=== PATIENT | female | born 1960 | race Caucasian/White ===

== ENCOUNTER → 2019-12-11 15:14 | Outpatient (CLI) | payer OTHER, SELFPAY ==
--- NOTE | ~2019-12-11 | MM_ITS ---
EXAMINATION: MM screening [facility] BI w opal HISTORY: Screening mammogram TECHNIQUE: Craniocaudal and mediolateral oblique 3-D tomosynthesis images were obtained and synthetic 2-D images were generated. CAD analysis was submitted and interpreted. COMPARISON: 12/06/2018, 11/17/2017, 11/08/2016 BREAST PARENCHYMAL COMPOSITION: There are scattered areas of fibroglandular density. FINDINGS: RIGHT BREAST: There is no evidence of suspicious mass, calcification, or architectural distortion to suggest malignancy. There has been no significant interval change. LEFT BREAST: A mass is present in the middle third of the lower-outer breast best appreciated 8 cm fr om the nipple on craniocaudal tomosynthesis image /. IMPRESSION: 1. Left breast mass. 2. Additional mammographic views and possible breast ultrasound are recommended. BI-RADS Category 0: Incomplete: Needs additional imaging evaluation. Reviewed, dictated and finalized at location A. IMPRESSION: 1. Left breast mass. 2. Additional mammographic views and possible breast ultrasound are recommended . BI-RADS Category 0: Incomplete: Needs additional imaging evaluation.
== END ==
PROVIDERS: Visit Provider Nurse Practitioner Obstetrics & Gynecology
DX: Z12.31 Encounter for screening mammogram for malignant neoplasm of breast (principal); R92.8 Other abnormal and inconclusive findings on diagnostic imaging of breast
CPT/HCPCS: 77063; 77067

== ENCOUNTER → 2019-12-26 08:22 | Outpatient (CLI) | payer OTHER, SELFPAY ==
--- NOTE | ~2019-12-26 | MMUS_ITS ---
EXAMINATION: MM diagnostic mammo unilat LT, US breast LT limited HISTORY: Follow-up left breast mass TECHNIQUE: Additional 3-D tomosynthesis images of the left breast were performed and synthetic 2-D im ages were generated. CAD analysis was submitted and interpreted. High resolution left breast ultrasou nd was performed. COMPARISON: 12/11/2019 BREAST PARENCHYMAL COMPOSITION: Breast composed of scattered areas of fibroglandular density FINDINGS: MAMMOGRAPHIC FINDINGS: There is a small 5 mm mass in the mid outer aspect of the left breast. There are no suspicious calcif ications or architectural distortion. ULTRASOUND: Left breast ultrasound: At 3:00, 4 cm from the nipple, there is a 5 mm cyst corresponding to the mass seen on mammogram. No s uspicious masses to suggest malignancy. IMPRESSION: 1. No mammographic or sonographic evidence for malignancy in the left breast. 2. Routine yearly screening mammogram and regular clinical breast examination are recommended. BI-RADS Category 2: Benign finding(s). Reviewed, dictated and finalized at location A. IMPRESSION: 1. No mammographic or sonographic evidence for malignancy in the left breast. 2. Routine yearly screening mammogram and regular clinical breast examination a re recommended. BI-RADS Category 2: Benign finding(s).
== END ==
PROVIDERS: PCP Family Medicine; Visit Provider Nurse Practitioner Obstetrics & Gynecology
DX: R92.8 Other abnormal and inconclusive findings on diagnostic imaging of breast (principal)
CPT/HCPCS: 76642; 77065

== ENCOUNTER → 2021-01-13 13:13 | Outpatient (CLI) | payer OTHER, SELFPAY ==
--- NOTE | ~2021-01-13 | MM_ITS ---
EXAMINATION: MM screening [facility] BI w opal HISTORY: Screening TECHNIQUE: Craniocaudal and mediolateral oblique 3-D tomosynthesis images were obtained and synthetic 2-D images were generated. CAD analysis was submitted and interpreted. COMPARISON: Comparison to multiple prior studies sequentially, with oldest reviewed study dated 10/15. BREAST PARENCHYMAL COMPOSITION: There are scattered areas of fibroglandular density. FINDINGS: There is no evidence of suspicious mass, calcification, or architectural distortion to sugg est malignancy in either breast. There has been no suspicious interval change. IMPRESSION: 1. No mammographic evidence of malignancy. 2. Recommend routine screening mammography in one year. BI-RADS Category 1: Negative Reviewed, dictated and finalized at location A.
--- NOTE | ~2021-01-13 | DEXA_ITS ---
Bone Density Report Name: Tracy Mckeon Age: 60 Sex: Female Ethnicity: White Date of : 1960 Indication: osteopenia;postmenopausal Referring Provider: Marie, Maria De Jesus Jalloh Study: Bone densitometry was performed. Exam Date: January 13, 2021 Accession number: [id number] Bone Density: Region BMD T-score Z-score Classification AP Spine (L1-L4) 0.825 -2.0 -0.6 Osteopenia Femoral Neck (Left) 0.710 -1.3 0.0 Osteopenia Total Hip (Left) 0.779 -1.3 -0.4 Osteopenia Femoral Neck (Right) 0.690 -1.4 -0.1 Osteopenia Total Hip (Right) 0.730 -1.7 -0.8 Osteopenia Total Hip Mean 0.755 -1.5 -0.6 Osteopenia World Health Organization criteria for BMD impression classify patients as: Normal (T-score at or above -1.0), Osteopenia (T-score between -1.0 and -2.5), or Osteoporosis (T-score at or below -2.5). 10-year Fracture Risk(1): Major Osteoporotic Fracture 7.9% Hip Fracture 0.6% Reported Risk Factors: [place] (), Neck BMD=0.690, BMI=26.9 (1) FRAX(R) Version 3.08. Fracture probability calculated for an untreated patient. Fracture probability may be lower if the patient has received treatment. Previous Exams: Region Exam Age BMD T-score BMD Change BMD Change Date g/cm2 vs Baseline vs Previous AP Spine(L1-L4) 01/13/2021 60 0.825 -2.0 -0.054* -0.054* 09/10/2013 53 0.879 -1.5 Total Hip(Left) 01/13/2021 60 0.779 -1.3 -0.053* -0.053* 09/10/2013 53 0.832 -0.9 Total Hip(Right) 01/13/2021 60 0.730 -1.7 -0.078* -0.078* 09/10/2013 53 0.808 -1.1 *Denotes significance at 95% confidence level, LSC for AP Spine = 0.022 g/cm2, LSC for Total Hip = 0.027 g/cm2 Clinical Information Provided by Patient: Has used the following medications: Vitamin D Patient maximum height was 66 Menopause Age: 52 Drinks caffeinated beverages Onset of menses at age 12 Number of children 0 Impression: The patient has low bone mass, based on the Total Spine T-score. The patient has an estimated ten-year risk of hip fracture of 0.6% and an estimated ten-year risk of major fracture of 7.9%, based on the WHO FRAX algorithm. The BMD for the AP Spine(L1-L4) decreased, changing by -0.054 since the last DXA exam. The BMD for the Total Hip(Left) decreased, changing by -0.053 since the last DXA exam. The BMD for the Total Hip(Right) decreased, changing by -0.078 since the last DXA exam. Discussion: BONE DENSITY IS L
== END ==
PROVIDERS: Visit Provider Nurse Practitioner Obstetrics & Gynecology
DX: Z12.31 Encounter for screening mammogram for malignant neoplasm of breast (principal); M85.88 Other specified disorders of bone density and structure, other site; M85.852 Other specified disorders of bone density and structure, left thigh; M85.851 Other specified disorders of bone density and structure, right thigh
CPT/HCPCS: 77063; 77067; 77080

== ENCOUNTER 2021-02-18 20:31 | Emergency (ER) | payer OTHER, SELFPAY ==
--- NOTE | ~2021-02-18 | XR_ITS ---
XR hand RT min 3V DATE: 02/18/2021 20:51 INDICATION: Fall, hand injury, pain, deformity TECHNIQUE: 4 views COMPARISON: None FINDINGS: There are comminuted intraarticular fractures of the base and metaphysis of the proximal ph alanges of the second and third digits. There is approximately 30 degrees apex medial angulation and minimal displacement at the second digit proximal phalangeal fracture. There is approximately 50% medial displacement and up to 45 degrees apex anterior and 33 degrees apex medial angulation at the fracture of the third proximal phalanx. No other fracture or dislocation. IMPRESSION: Comminuted intra-articular fractures of the proximal phalanges of the second and third di gits Reviewed, dictated and finalized at location A. IMPRESSION: Comminuted intra-articular fractures of the proximal phalanges of t he second and third digits
--- NOTE | ~2021-02-18 | XR_ITS ---
XR hand RT min 3V DATE: 02/18/2021 22:39 INDICATION: Repeat post-reduction examination TECHNIQUE: 3 views COMPARISON: pre-reduction and initial post-reduction examination FINDINGS: There is plantar again noted along the anterior aspect of the second, third and fourth digi ts. There is near-anatomic position and alignment and minimal angulation of the comminuted intra-articula r fracture of the base of the proximal veins of the second digit. There is approximately 4.5 mm medial and minimal anterior displacement and approximately 8 degrees ap ex medial and 15 degrees apex anterior angulation at the comminuted fracture of the base of the third digit. Again noted is posterior dislocation at the proximal interphalangeal joint of the fourth digit. IMPRESSION: Persistent posterior dislocation at proximal interphalangeal joint of fourth digit Near-anatomic position and alignment at the second digit proximal phalangeal fracture Anteromedial displacement and apex anteromedial angulation as noted above at the third digit proximal phalangeal fracture Reviewed, dictated and finalized at location A. IMPRESSION: Persistent posterior dislocation at proximal interphalangeal joint of fourth digit Near-anatomic position and alignment at the second digit proximal phalangeal fr acture Anteromedial displacement and apex anteromedial angulation as noted above at th e third digit proximal phalangeal fracture
--- NOTE | ~2021-02-18 | XR_ITS ---
XR hand RT 2V DATE: 02/18/2021 22:30 INDICATION: Right hand fractures TECHNIQUE: Postoperative reduction AP and lateral views COMPARISON: 02/16/2021 right hand FINDINGS: There are splints at the anterior aspect of the second through fourth digits. There is posterior dislocation at the proximal interphalangeal joint of the fourth digit. No significant change in position or alignment at the comminuted intra-articular fractures at the bas es of the proximal phalanges of the second and third digits IMPRESSION: Anterior splints for: Comminuted intra-articular fractures of bases of proximal phalanges of the second and third digits Posterior dislocation at the proximal interphalangeal joint of the fourth digit Reviewed, dictated and finalized at location A. IMPRESSION: Anterior splints for: Comminuted intra-articular fractures of bases of proximal phalanges of the seco nd and third digits Posterior dislocation at the proximal interphalangeal joint of the fourth digit
[2021-02-18 20:35] VITALS: BP 177/91; PULSE 86; RESP 17; TEMP 36.2; O2SAT 100
--- NOTE | 2021-02-18 21:24 | ED.UPPEXIN ---
HPI - Extremity Injury (Upper) General Chief Complaint: Extremity Injury, Upper Stated Complaint: FELL ON HAND PLAYING A GAME Time Seen by Provider: 02/18/21 21:15 Source: patient Mode of arrival: ambulatory Limitations: no limitations History of Present Illness HPI narrative: Patient is a 60-year-old female who presents for evaluation of right hand injury. Patient fell while playing pickle ball this evening, breaking her fall with her right hand. Patient with deformity, bruising and swelling to fingers on the right hand. She has difficulty moving the right third and fourth finger. She denies any numbness. No real weakness, states movement is difficult due to pain. She is right-hand dominant. No active bleeding. No head trauma or loss of consciousness. Related Data Home Medications Medication Instructions Recorded Confirmed aspirin 81 mg tablet,delayed 81 mg PO DAILY 07/31/19 release cholecalciferol (vitamin D3) 25 25 mcg PO DAILY 07/31/19 mcg (1,000 unit) capsule dorzolamide 22.3 mg-timolol 6.8 1 drop EACH EYE BID 07/31/19 mg/mL eye drops multivitamin with minerals-folic mcg PO 07/31/19 acid 200 mcg chewable tablet Allergies Allergy/AdvReac Type Severity Reaction Status Date / Time Penicillins Allergy Unknown Unknown Verified 02/18/21 21:44 Tetanus Vaccines and Toxoid AdvReac Intermediate red rash - Verified 02/18/21 21:44 large around injection site Review of Systems Review of Systems: CONSTITUTIONAL: Denies fever CARDIOVASCULAR: Denies chest pain RESPIRATORY: Denies cough or dyspnea. GASTROINTESTINAL: Denies abdominal pain SKIN: Denies rash MUSCULOSKELETAL: Denies back pain, reports right hand pain in 3rd and 4th fingers, reports swelling and bruising NEUROLOGIC: Denies headache, denies numbness PMFSH Past Medical History Medical History BRIAN (generalized anxiety disorder) Glaucoma Hyperlipidemia Hypertension Vitamin D deficiency Surgical History Surgical History [place] teeth removed (~1987) Family History Family History Father Diabetes mellitus Hypertension Cerebrovascular accident Mother Diabetes mellitus Family history of cardiovascular disease Acute myocardial infarction Family history of coronary artery disease Sibling Diabetes mellitus Family history of kidney disease Social History Social History Smoking status: Never smoker Second hand tobacco smoke exposure: No Alcohol intake: current Drinks per week: 6 Alcohol use details: 6 glasses of wine a week Substance use: never Substance use type: does not use 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 CONSTITUTIONAL: The patient appears well-developed and well-nourished. No distress. HEAD: Normocephalic and atraumatic. EYES: PERRL, EOMI, normal conjunctiva, anicteric EARS: External ears clear bilaterally, no hemotympanum MOUTH: OP clear, no erythema, exudates NECK: midline trachea, supple, FROM. No midline cervical spinal tenderness. CARDIOVASCULAR: Normal rate, regular rhythm, normal heart sounds and intact distal pulses. No murmurs, rubs, gallops. PULMONARY: Effort normal and breath sounds normal. No respiratory distress. The patient has no wheezes, rales, ronchi. No chest wall tenderness, crepitus or ecchymoses. ABDOMINAL: Soft. Nontender, nondistended. No palpable masses EXTREMITIES:: moving all extremities symmetrically. -RUE: Deformities of the proximal phalanges 2nd, 3rd, 4th digits, with inability to extend at the PIP. Pt with right volar hand with ecchymoses
--- NOTE | 2021-02-18 22:11 | PC.NURSE ---
EDP at beside for digital block, reduction, and splint.
== END 2021-02-18 23:00 | disposition home or self-care (01) ==
PROVIDERS: Emergency Provider Emergency Medicine; PCP Family Medicine
DX: S62.610A Displaced fracture of proximal phalanx of right index finger, initial encounter for closed fracture (principal); S62.612A Displaced fracture of proximal phalanx of right middle finger, initial encounter for closed fracture; S63.284A Dislocation of proximal interphalangeal joint of right ring finger, initial encounter; E78.5 Hyperlipidemia, unspecified; I10 Essential (primary) hypertension; E55.9 Vitamin D deficiency, unspecified; H40.9 Unspecified glaucoma; Z79.82 Long term (current) use of aspirin; W18.30XA Fall on same level, unspecified, initial encounter; Y93.73 Activity, racquet and hand sports
CPT/HCPCS: 26725; 26770; 29130; 73120; 73130; 99285

== ENCOUNTER 2021-02-24 10:51 | Outpatient (CLI) | payer OTHER, SELFPAY ==
--- NOTE | 2021-02-24 11:00 | ECG_ITS ---
Measurements Intervals [place] Rate: 77 P: 138 WA: 165 QRS: -24 QRSD: 93 T: -27 QT: 360 QTc: 409 Interpretive Statements SINUS RHYTHM DELAYED PRECORDIAL R/S TRANSITION LOW QRS VOLTAGE IN PRECORDIAL LEADS CONSIDER INFERIOR INFARCT, AGE INDETERMINATE ABNORMAL ECG Electronically Signed On 02-24-2021 11:15:50 CDT by Himanshu Gutierres D.O.
== END 2021-02-24 10:52 | disposition home or self-care (01) ==
LOC: ANHSURGERY 10:56
PROVIDERS: PCP Family Medicine; Visit Provider Plastic Surgery
DX: Z01.818 Encounter for other preprocedural examination (principal); I10 Essential (primary) hypertension; R94.31 Abnormal electrocardiogram [ECG] [EKG]
CPT/HCPCS: 93005

== ENCOUNTER 2021-02-25 01:47 | Day surgery (SDC) | payer OTHER, SELFPAY ==
[2021-02-23 13:40] VITALS: BMI 26.3
[2021-02-25] VITALS (7 sets, daily range): BP systolic 128–151; BP diastolic 68–91; PULSE 75–101; RESP 13–17; TEMP 37.1–37.6; O2SAT 95–100; BMI 26.6
--- NOTE | ~2021-02-25 | XR_ITS ---
EXAMINATION: XR surgery orthopedic EXAM DATE: 02/25/2021 13:47 INDICATION: Finger fractures. TECHNIQUE: Fluoroscopy used during right hand surgery performed by Dr. Aleksander Kelly MD. Radiolo gist was not present for the imaging or procedure. Total fluoroscopic time of 185 seconds. The DAP for this procedure was 0.07 mGym2. A total of 6 images sent to PACS from the exam. Correlation is ma de to x-ray 02/18/2021. FINDINGS: Intraoperative images demonstrates comminuted fractures through the bases of the right 2nd , 3rd proximal phalanges, an orthopedic pin extending through the length of each of these 2 bones. Pr eviously seen dislocations have been reduced. Correlate with procedure note. IMPRESSION: Fluoroscopy used during right 2nd, 3rd proximal phalangeal reduction, fixation. Reviewed, dictated and finalized at location B. IMPRESSION: Fluoroscopy used during right 2nd, 3rd proximal phalangeal reductio n, fixation.
--- NOTE | 2021-02-25 07:06 | WPDHPUPDATE1 ---
History and Physical Update Update Date/Time: 02/25/21 07:06 History and Physical has been reviewed, including an updated exam of the patient. There are NO changes in the patient's condition. Risks, benefits, and alternatives have been discussed and questions answered. Patient agrees to proceed with procedure.
--- NOTE | 2021-02-25 11:15 | WPDANESEPPF ---
Anes - Initial Pre Proc Eval Procedure: Operation Date: 02/25/21 13:00 Proposed Procedures p Closed Possible Open Reduction of Fractures Right Index And Middle Fingers, Proximal Interphalangeal Dislocation Right Ring Finger - Aleksander Kelly MD Date/Time: 02/25/21 11:15 Surgeon: Aleksander Kelly MD Pre Op Diagnosis: Fractures Right index & Middle Fingers Patient Data Age: 60 Gender: F Height: 1.68 m Weight: 73.95 kg Allergies Allergy/AdvReac Type Severity Reaction Status Date / Time Penicillins Allergy Unknown Unknown Verified 02/25/21 11:18 Tetanus Vaccines and Toxoid AdvReac Intermediate red rash - Verified 02/25/21 11:18 large around injection site Home Medications Medication Instructions Recorded Confirmed Type aspirin 81 mg tablet,delayed 81 mg PO DAILY 07/31/19 02/23/21 History release cholecalciferol (vitamin D3) 25 25 mcg PO DAILY 07/31/19 02/23/21 History mcg (1,000 unit) capsule dorzolamide 22.3 mg-timolol 6.8 1 drop EACH EYE BID 07/31/19 02/23/21 History mg/mL eye drops multivitamin with minerals-folic 200 mcg PO DAILY 07/31/19 02/23/21 History acid 200 mcg chewable tablet lisinopril 10 mg tablet 10 mg PO DAILY #90 tablet 09/15/20 02/23/21 Rx paroxetine HCl 20 mg tablet 10 mg PO DAILY #90 tablet 09/15/20 02/23/21 Rx simvastatin 10 mg tablet 10 mg PO QPM #90 tablet 09/15/20 02/23/21 Rx cholecalciferol (vitamin D3) 1,250 1,250 mcg PO WEEKLY #12 tablet 09/17/20 02/23/21 Rx mcg (50,000 unit) tablet oxycodone-acetaminophen 1 tablet PO Q6H PRN 3 Days #14 02/18/21 02/23/21 Rx tablet Patient hx anesthesia problems: none Family hx anesthesia problems: none PMFSH Past Medical History Medical History BRIAN (generalized anxiety disorder) Glaucoma Hyperlipidemia Hypertension Vitamin D deficiency Surgical History Surgical History [place] teeth removed (~1987) Family History Family History Father Diabetes mellitus Hypertension Cerebrovascular accident Mother Diabetes mellitus Family history of cardiovascular disease Acute myocardial infarction Family history of coronary artery disease Sibling Diabetes mellitus Family history of kidney disease Social History Social History Smoking status: Never smoker Second hand tobacco smoke exposure: No Alcohol intake: current Drinks per week: 6 Alcohol use details: 6 glasses of wine a week Substance use: never Substance use type: does not use Living arrangements: with family 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 Gender identity (if verbalized by the patient): Female Spiritual care concerns: Yes Agree to blood products: Yes Anes - Eval Final PreProcedure Day of Procedure 02/25/21 11:15 Patient weight: overweight Heart: regular rate and rhythm Lungs: clear to auscultation Airway: Mallampati scale class II Neurological: alert and oriented Last oral intake: >/= 8 hours ASA classification: II Emergent: no Anesthetic plan: proceed Anesthesia type and monitoring: general LMA and standard monitoring Informed Consent: The patient's anesthetic plan and its attendant risks and benefits were discussed with the patient/family/POA. Questions were solicited and answers provided to the satisfaction of the patient/family/POA.
[2021-02-25] MEDS: LACTATED RINGERS 1,000 ML 30 ML IV CONT ×2 (11:42→14:00)
[2021-02-25] MEDS: ceFAZolin 2 GM/D5W 50 ML 2 GM/50 ML BAG IVPB (12:26)
[2021-02-25] MEDS: LIDO 1%/EPINEPHRINE 1:100,000 50 ML VIAL INFILTRATE (12:56)
[2021-02-25] MEDS: BUPIVACAINE HCL 0.5% PF 30 ML VIAL INFILTRATE (13:45)
--- NOTE | 2021-02-25 14:35 | P.OPB_ITS ---
Procedure Note - Brief Procedure Note - Brief Date of procedure: 02/25/21 Pre-op diagnosis: Fractures Right index & Middle Fingers Post-op diagnosis: same Procedure performed: CRPP proximal phalanx of right 2nd and 3rd fingers. Application of splint to wrist and ring finger PIPJ. Anesthesia: GLMA Surgeon: Aleksander Kelly MD Furnace Operator And Tender: Luis Estimated blood loss (mL): 0 Drains: No Packing: No Pathology: none sent Complications: No immediate complications Condition: stable Disposition: PACU
--- NOTE | 2021-02-25 16:22 | W.PM.PROC2 ---
Procedure Note - Detailed Date of Procedure 02/25/21 Pre-op Diagnosis Fractures Right index & Middle Fingers Post-op Diagnosis same Procedure Performed Closed reduction and percutaneous pin fixation of the proximal phalanx of the right 2nd and 3rd fingers. Surgeon Aleksander Kelly MD Composite Bond Worker Luis Anesthesia general Indications Comminuted displaced fractures of the proximal phalanx the right 2nd and 3rd fingers and recent dislocation of the 4th finger proximal interphalangeal joint Findings The 4th finger proximal interphalangeal joint had become relocated since her last x-rays were taken. Description of Procedure The 3 digits marked on the patient in the holding area. She was taken to the operating room and placed supine on the operating table. Time-out was held and confirmed. She was given general anesthesia and the right upper extremity was prepped and draped in usual fashion. The image intensifier was brought to the table and all sites imaged. The proximal interphalangeal joint on the ring finger had become reduced and was stable. Alignment satisfactory. The pin prevented further apex volar dislocation. The proximal phalangeal fractures at the base ran intra-articular in each case. The fragments of the base were not separately dislocated. A reduction at each site was achieved. I elected to pass a 0.045 in C-wire prograde 1st on the index finger. On the middle finger the pin was passed pro grade down the shaft of the proximal phalanx from the base. This achieved the same result with adequate reduction and adequate but not complete stabilization. It did allow joint mobility however at the metacarpophalangeal and the proximal interphalangeal joints. Alumafoam splint was applied to the dorsal aspect of the ring finger proximal interphalangeal joint and taped to the proximal phalanx allowing joint range of motion but dorsal protection. The pin sites were carefully wrapped at the 2nd 3rd and the 2 fingers were gregg-taped. A volar Ortho Glass splint was applied to the palmar aspect with the wrist in about 20? of extension and the metacarpophalangeals at a position of function. Some range of motion was thus feasible at all joints. 0.5% Marcaine was infiltrated locally to the operated areas. She is discharged home with instructions in wound care and follow-up and a prescription for hydrocodone 5/325. She had been given Ancef IV prior to the case Estimated Blood Loss 0 Drains No Packing No Pathology none sent Complications No immediate complications Condition stable Disposition PACU
== END 2021-02-25 15:30 | disposition home or self-care (01) ==
PROVIDERS: PCP Family Medicine; Visit Provider Plastic Surgery
PROC: (CPT 26727; principal; 2021-02-25 13:00)
DX: S62.610A Displaced fracture of proximal phalanx of right index finger, initial encounter for closed fracture (principal); S62.612A Displaced fracture of proximal phalanx of right middle finger, initial encounter for closed fracture; W01.0XXA Fall on same level from slipping, tripping and stumbling without subsequent striking against object, initial encounter; Y93.69 Activity, other involving other sports and athletics played as a team or group; I10 Essential (primary) hypertension; E78.5 Hyperlipidemia, unspecified; F41.1 Generalized anxiety disorder; H40.9 Unspecified glaucoma; E55.9 Vitamin D deficiency, unspecified; Z79.82 Long term (current) use of aspirin
CPT/HCPCS: 26727 ×2; 93005; A9270; C1713; J0131; J0690; J1100; J2250; J2405; J2704; J3010; J7120

== ENCOUNTER → 2021-03-05 14:17 | Outpatient (CLI) | payer OTHER, SELFPAY ==
--- NOTE | ~2021-03-05 | XR_ITS ---
XR hand RT min 3V DATE: 03/05/2021 14:40 INDICATION: Displaced fractures of proximal phalanx of right second and third digits TECHNIQUE: 3 views COMPARISON: 02/18/2021 postoperative reduction examination FINDINGS: There is a dorsal splint at the fourth digit with reduction of previously noted posterior d islocation of the proximal interphalangeal joint. A very small chip fracture is noted at the posterol ateral aspect of the proximal interphalangeal joint. Pins extending through the bases of each of the proximal phalanges of the second and third digits, te rminating at the heads of each of the proximal phalanges, providing near-anatomic alignment at the co mminuted intra-articular fractures of the bases of both second and third proximal phalanges. There is a splint along the volar aspect of the forearm, wrist and hand. IMPRESSION: Status post pinning at comminuted intra-articular fracture of base of the proximal phalan ges of second and third digits with near-anatomic position and alignment Dorsal splint with reduction of prior posterior dislocation at proximal interphalangeal joint of four th digit Anterior splint of the right upper extremity Reviewed, dictated and finalized at location B. IMPRESSION: Status post pinning at comminuted intra-articular fracture of base of the proximal phalanges of second and third digits with near-anatomic positio n and alignment Dorsal splint with reduction of prior posterior dislocation at proximal interph alangeal joint of fourth digit Anterior splint of the right upper extremity
== END ==
PROVIDERS: PCP Family Medicine; Visit Provider Plastic Surgery
DX: S62.610A Displaced fracture of proximal phalanx of right index finger, initial encounter for closed fracture (principal); S62.612A Displaced fracture of proximal phalanx of right middle finger, initial encounter for closed fracture
CPT/HCPCS: 73130

== ENCOUNTER → 2021-04-02 13:38 | Outpatient (CLI) | payer OTHER, SELFPAY ==
--- NOTE | ~2021-04-02 | XR_ITS ---
EXAMINATION: XR hand RT min 3V DATE: 04/02/2021 14:09 INDICATION: Displaced fracture of proximal phalanx of right hand. TECHNIQUE: 3 views of right hand were obtained. COMPARISON: Right hand radiographs 03/05/2021, 02/18/2021, 02/25/2021 FINDINGS: There is a comminuted intra-articular fracture of base of second proximal phalanx. There is a 1 mm step-off at the articular surface. The main distal fracture fragment demonstrates impaction. Fixation is seen with a percutaneous wire. There is a comminuted intra-articular fracture of base of third proximal phalanx. The main distal fracture fragment demonstrates 9 degrees radial angulation an d 1 mm ulnar displacement. Fixation is seen with a percutaneous wire. There is diffuse osteopenia. Th ere is borderline widening of scapholunate joint. 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 IMPRESSION: 1. Comminuted intra-articular fractures of the bases of second and third proximal phalanges without c hange in alignment. 2. Borderline widening of scapholunate joint. Reviewed, dictated and finalized at location A. IMPRESSION: 1. Comminuted intra-articular fractures of the bases of second and third proxim al phalanges without change in alignment. 2. Borderline widening of scapholunate joint.
== END ==
PROVIDERS: PCP Family Medicine; Visit Provider Plastic Surgery
DX: S62.610D Displaced fracture of proximal phalanx of right index finger, subsequent encounter for fracture with routine healing (principal); S62.612D Displaced fracture of proximal phalanx of right middle finger, subsequent encounter for fracture with routine healing; X58.XXXD Exposure to other specified factors, subsequent encounter
CPT/HCPCS: 73130

== ENCOUNTER 2021-06-15 13:30 | Outpatient (RCR) | payer OTHER, SELFPAY ==
--- NOTE | 2021-03-20 15:58 | OTOPEVAL ---
OCCUPATIONAL THERAPY INITIAL EVALUATION REPORT 03/20/21 Thank you for referring Tracy Mckeon to [facility].? The patient is scheduled to be seen for therapy? 1-2x/week for 6 weeks. Please review, sign, date and return this plan of care VALDEZ. I agree with and certify that the following plan of care is medically necessary. Referring Physician Date Referring Provider: Aleksander Kelly MD *OT Outpatient Evaluation Outpatient Past Medical History Neurological History Hx Neurological Disorders No Significant History Cardiovascular History Hx Other Cardiac Disorders Yes: WALKS 30 MINS 3 X WK Respiratory History Hx Respiratory Disorders No Significant History Gastrointestinal History Hx Gastrointestinal Disorders No Significant History Genitourinary History Hx Genitourinary Disorders No Significant History Musculoskeletal History Hx Other Musculoskeletal Disorders Yes: FX RT INDEX AND MIDDLE FINGER Hematological History Hx Hematological Disorders No Significant History Endocrine History Hx Endocrine Disorders No Significant History HEENT History Hx Other HEENT Disorders Yes: WISDOM TEETH EXT. Integumentary History Hx Skin Disorders No Significant History Reproductive History Hx Post Menopausal Yes Psychosocial History Hx Anxiety Yes Pain History History of Any Previous or Ongoing No Significant History Instance of Pain Anesthesia History Hx Anesthesia Reactions No Significant History Evaluation Information Problem Diagnosis fracture to right index and middle proximal phalanx s/p CRPP Additional Evaluation Detail 02/25 - CRPP Subjective Information Patient states she has very Query Text:As Reported By Patient/ limited use of her right hand. Family has been helping with ADLs as needed. She presents today with volar hand and forearm ortho glass splint with Coban. We removed these to fine two stable percutaneous pins with no evidence of redness or irritation. Prior Level of Function Activity Level (Last 3 Months) Occupation Retired Hand Dominance Right Pain Assessment Timing of Pain Assessment Timing of Pain Assessment Assessment Pain Scale Pain Scale Used Numeric (1 - 10) Self Report Pain Assessment Right Hand(s) Reported Pain Level 0 Lowest Pain Intensity 0 Greatest Pain Intensity 2 Pain Score Pain Score 0: Self Report Upper Extremity Range of Motion Wrist Range of Motion Right
--- NOTE | 2021-04-28 13:12 | OTOPEVAL ---
OCCUPATIONAL THERAPY RE-EVALUATION 04/28/21 Tracy has participated in 6 weeks of outpatient hand therapy. Marked improvement noted in ROM of the right wrist and fingers. At the start of care she had a 10 cm gap between her finger tips at the base of her palm and today she is measuring with 1-2 cm gap. She continues to have stiff MCP joints, intrinsic tightness, and edema that is limiting her gross fist and overall function. Also to note, she began exhibiting signs of a trigger finger in the right middle finger which has limited her ability to complete gross gripping exercises and resistive exercise with putty. She will benefit from continued skilled OT for modalities, ROM, strengthening, and progression of her HEP. Thank you for referring Tracy Mckeon to [facility].? The patient is scheduled to be seen for therapy?2x/week for 4 weeks. Please review, sign, date and return this plan of care VALDEZ. I agree with and certify that the following plan of care is medically necessary. Referring Physician Date Referring Provider: Aleksander Kelly MD *OT Outpatient Re-Evaluation Start: 03/20/21 14:39 Re-Evaluation Information Problem Diagnosis fracture to right index and middle proximal phalanx s/p CRPP Additional Evaluation Detail 02/25 - CRPP 03/20 - OT began 04/03 - Pin removal Subjective Information Patient reports improvements Query Text:As Reported By Patient/ with ROM in her right hand Family which has translated into improved functional use with doing the dishes, unloading the [employer], holding a blow dryer, tying shoes, driving, and eating. She has been completing passive and active ROM, channel layer splint for dynamic progressive ROM for MCP flexion, and she began working with some resistive putty last week. Barriers to improvements include edema, stiffness, and the beginning of a trigger finger in the middle finger. Pain Assessment Timing of Pain Assessment Timing of Pain Assessment Re-assessment Pain Scale Pain Scale Used Numeric (1 - 10) Self Report Pain Assessment Right Hand(s) Reported Pain Level 0 Lowest Pain Intensity 0 Greatest Pain Intensity 3 Pain Aggravating Factors Exercise/Activity Pain Score Pain Score 0: Self Report Upper Extremity Range of Motion Wrist Range of Motion Right Wrist Flexion - Active 75 Wrist Extension - Active 60 Wrist Radial Deviation - Active 20 Wrist Ulnar Deviatio
--- NOTE | 2021-05-28 13:31 | OTOPEVAL ---
OCCUPATIONAL THERAPY RE-EVALUATION REPORT 05/28/21 Tracy has participated in 10 weeks of outpatient hand therapy. Marked improvement noted in ROM of the right wrist and fingers. At the start of care she had a 8-10 cm gap between her finger tips at the base of her palm and today she is measuring with 0-1 cm gap. Hook fist is also emerging noted by 0-3 cm gap between finger tips and the DPC. She continues to have stiff MCP joints, intrinsic tightness, edema, and symptoms of a trigger finger that are limiting her gross fist and overall function. The cortisone injection from 05/05 did help with her trigger finger symptoms (no longer has pain), but they do return with active gross finger flexion. Due to this, therapy has been focusing on passive ROM/stretching, gentle gripping, wrist strengthening, and tendon gliding. She will benefit from continued skilled OT for modalities, ROM, strengthening, and progression of her HEP. Thank you for referring Tracy Mckeon to [facility].? The patient is scheduled to be seen for therapy? 1-2x/week for 4 weeks. Please review, sign, date and return this plan of care VALDEZ. I agree with and certify that the following plan of care is medically necessary. Referring Physician Date Referring Provider: Aleksander Kelly MD *OT Outpatient Evaluation Start: 03/20/21 14:39 Evaluation Information Problem Diagnosis fracture to right index and middle proximal phalanx s/p CRPP Additional Evaluation Detail 02/25 - CRPP 03/20 - OT began 04/03 - Pin removal Subjective Information Patient reports improvements Query Text:As Reported By Patient/ with ROM in her right hand Family which has translated into improved functional use with using the right hand to pump gas, open doors, carrying bags and heavy items, and making cookies. She reports that she feels stronger and is able to lift heavier objects without pain. Since her cortisone injection (05/05/21) she has been having decreased trigger finger symptoms, but they have not completely resolved. She no longer has pain with finger flexion and the sticking does not require her left hand to extend the finger again. She unfortunately continues to get some signs of triggering with repeated active flexion. She has been completing passive and active ROM, equal opportunity specialist splint for
--- NOTE | 2021-06-15 14:06 | OTOPEVAL ---
OCCUPATIONAL THERAPY RE-EVALUATION AND DISCHARGE SUMMARY 06/15/21 Tracy has participated in 12 weeks of outpatient hand therapy. Marked improvement noted in ROM of the right wrist and fingers. At the start of care she had a 8-10 cm gap between her finger tips at the base of her palm and today she is measuring with 0-1 cm gap. Hook fist is also emerging noted by 0-3 cm gap between finger tips and the DPC. She continues to have stiff MCP joints, intrinsic tightness, edema, and symptoms of a trigger finger that are limiting her gross fist and overall function. She reports being very functional despite residual stiffness. At this time she has reached her maximum benefit of therapy. She has functional ROM and near normal passive ROM. She is currently independent with all materials. 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 She is in agreement with D/C. Thank you for referring Tracy Mckeon to [facility].? Please review, sign, date and return this D/C Note VALDEZ. I agree with and certify that the following plan of care is medically necessary. Referring Physician Date Referring Provider: Aleksander Kelly MD *OT Outpatient Re-Evaluation Start: 03/20/21 14:39 Problem Diagnosis fracture to right index and middle proximal phalanx s/p CRPP Additional Evaluation Detail 02/25 - CRPP 03/20 - OT began 04/03 - Pin removal Subjective Information Patient reports being more Query Text:As Reported By Patient/ comfortable and confident in Family using her right hand for more ADL tasks. She states she is now using her right hand to do everything I need to do , noting her ability to vaccuum , write, carry objects, cook, and clean. She states her range of motion isn't there yet but she is able to use her hand and she is happy with that. She reports that the middle finger PIP joint pops but does not get stuck like it used to. Pain Assessment Timing of Pain Assessment Timing of Pain Assessment Re-assessment Pain Scale Pain Scale Used Numeric (1 - 10) Self Report Pain Assessment Right Hand(s) Reported Pain Level 0 Lowest Pain Intensity 0 Greatest Pain Intensity 0 Pain Score Pain Score 0: Self Report Upper Extremity Range of Motion Finger Range of Motion Right Index Finger MCP Joint Flexion - Active 65 Index Finger MCP Joint Flexion - Passive 75 Index Finger PIP Joint Flexion - Active 90 Index Finger DIP Joint Flexion - Active 55 Index Finger Tip to Distal Palmar Crease 1
== END 2021-06-16 08:50 | disposition home or self-care (01) ==
LOC: ANHOT 13:30
PROVIDERS: PCP Family Medicine; Visit Provider Plastic Surgery
DX: Z47.89 Encounter for other orthopedic aftercare (principal)
CPT/HCPCS: 97018; 97035; 97110; 97140; 97166

== ENCOUNTER → 2022-03-15 13:27 | Outpatient (CLI) | payer OTHER, SELFPAY ==
--- NOTE | ~2022-03-15 | MM_ITS ---
EXAMINATION: MM screening felipa BI w opal HISTORY: Screening TECHNIQUE: Craniocaudal and mediolateral oblique 3-D tomosynthesis images were obtained and synthetic 2-D images were generated. CAD analysis was submitted and interpreted. COMPARISON: Comparison to multiple prior studies sequentially, with oldest reviewed study dated 10/2016. BREAST PARENCHYMAL COMPOSITION: There are scattered areas of fibroglandular density. FINDINGS: There are bilateral periareolar asymmetries which are slightly more prominent than on prior examination, possibly due to technique. No suspicious calcifications or architectural distortion. IMPRESSION: 1. Bilateral periareolar asymmetries. 2. Additional mammographic views and possible breast ultrasound are recommended. BI-RADS Category 0: Incomplete: Needs additional imaging evaluation. Reviewed, dictated and finalized at location A. IMPRESSION: 1. Bilateral periareolar asymmetries. 2. Additional mammographic views and possible breast ultrasound are recommended . BI-RADS Category 0: Incomplete: Needs additional imaging evaluation.
== END ==
PROVIDERS: PCP Family Medicine; Visit Provider Nurse Practitioner Obstetrics & Gynecology
DX: Z12.31 Encounter for screening mammogram for malignant neoplasm of breast (principal); R92.8 Other abnormal and inconclusive findings on diagnostic imaging of breast
CPT/HCPCS: 77063; 77067

== ENCOUNTER 2022-03-17 09:23 | Outpatient (CLI) | payer OTHER, SELFPAY ==
[2022-03-17 19:53] LABS: Hemoglobin A1C 5.7 % (<5.7)
[2022-03-17 20:19] LABS: Alanine Aminotransferase 34 U/L (6-35); Albumin Level 4.7 g/dL (3.5-5.1); Alkaline Phosphatase 53 U/L (38-126); Anion Gap 12 mmol/L (8-16); Aspartate Amino Transferase 32 U/L (14-36); Bilirubin,Total 0.7 mg/dL (0.2-1.3); Blood Urea Nitrogen 18 mg/dL (7-17); Calcium 9.6 mg/dL (8.4-10.2); Carbon Dioxide 23 mmol/L (22-30); Chloride 103 mmol/L (98-107); Estimated Glomerular Filt Rate > 60; Glucose 114 mg/dL (65-110); Potassium 3.9 mmol/L (3.4-5.0); Sodium 138 mmol/L (137-145)
== END 2022-03-17 09:24 | disposition home or self-care (01) ==
LOC: ANHGOSHLAB 09:24
PROVIDERS: PCP Family Medicine; Visit Provider Family Medicine
DX: Z51.81 Encounter for therapeutic drug level monitoring (principal); Z79.899 Other long term (current) drug therapy; R73.03 Prediabetes
CPT/HCPCS: 36415; 80053; 83036

== ENCOUNTER → 2022-04-02 08:48 | Outpatient (CLI) | payer OTHER, SELFPAY ==
--- NOTE | ~2022-04-02 | MMUS_ITS ---
EXAMINATION: MM diagnostic felipa BI w opal, US breast RT limited HISTORY: Bilateral breast asymmetries on screening mammogram TECHNIQUE: Additional 3-D tomosynthesis images of the right breast were performed and synthetic 2-D i mages were generated. CAD analysis was submitted and interpreted. High resolution limited right breas t ultrasound was performed. COMPARISON: 03/15/2022, 01/13/2021, 12/26/2019, 12/11/2019 BREAST PARENCHYMAL COMPOSITION: There are scattered areas of fibroglandular density. FINDINGS: MAMMOGRAPHIC FINDINGS: There is a 4 mm round mass with mildly irregular margins at the 5:00 location 3 cm from the nipple in the anterior third of the right breast. There is a return to baseline fibroglandular appearance with spot compression of the left breast in the area questioned on screening mammogram. ULTRASOUND: There is a 4 mm x 2 mm oval, hypoechoic, parallel mass with indistinct margins, no posterior features , and no internal vascularity at the 6:00 location 5 cm from the nipple in the right breast. IMPRESSION: 1. Indeterminate right breast mass. 2. Ultrasound-guided biopsy is recommended. BI-RADS category 4, suspicious findings. Reviewed, dictated and finalized at location A. IMPRESSION: 1. Indeterminate right breast mass. 2. Ultrasound-guided biopsy is recommended. BI-RADS category 4, suspicious findings.
== END ==
PROVIDERS: PCP Family Medicine; Visit Provider Nurse Practitioner Obstetrics & Gynecology
DX: R92.8 Other abnormal and inconclusive findings on diagnostic imaging of breast (principal)
CPT/HCPCS: 76642; 77062; 77066; G0279

== ENCOUNTER 2022-09-23 10:52 | Outpatient (CLI) | payer OTHER, SELFPAY ==
[2022-09-23 13:08] LABS: Basophils Percent Auto 0.8 % (0.2-1.2); Eosinophils Absolute Auto 0.1 K/mm3 (0-0.3); Eosinophils Percent Auto 1.2 % (0-4.4); Hematocrit 41.3 % (37.0-47.0); Hemoglobin 13.9 g/dL (12.0-15.0); Lymphocytes Absolute Auto 1.71 K/mm3 (0.9-3.2); Mean Corpuscular HGB Conc 33.7 g/dl (32-36); Mean Corpuscular Hemoglobin 31.8 pg (26-34); Mean Corpuscular Volume 94.5 fl (80-100); Mean Platelet Volume 11.4 fl (7.4-10.4); Monocytes Absolute Auto 0.4 K/mm3 (0.1-0.6); Monocytes Percent Auto 8.7 % (2.6-8.5); Neutrophils Absolute Auto 2.8 K/mm3 (1.3-6.7); Neutrophils Percent Auto 55.3 % (45.5-73.1); Platelet Count Result 183 k/mm3 (150-375); Red Blood Count 4.37 M/mm3 (4.2-5.4); Red Cell Distribution Width 12.8 % (11.5-14.5)
[2022-09-23 13:09] LABS: Alanine Aminotransferase 31 U/L (6-35); Albumin Level 4.3 g/dL (3.5-5.1); Alkaline Phosphatase 46 U/L (38-126); Anion Gap 4 mmol/L (8-16); Aspartate Amino Transferase 47 U/L (14-36); Bilirubin,Total 0.9 mg/dL (0.2-1.3); Blood Urea Nitrogen 17 mg/dL (7-17); Calcium 8.9 mg/dL (8.4-10.2); Carbon Dioxide 31 mmol/L (22-30); Chloride 101 mmol/L (98-107); Cholesterol 187 mg/dL (0-200); Estimated Glomerular Filt Rate > 60; Glucose 105 mg/dL (65-110); HDL Direct 59 mg/dL; Potassium 4.4 mmol/L (3.4-5.0); Sodium 136 mmol/L (137-145); Triglycerides 103 mg/dL (<150)
[2022-09-23 13:14] LABS: Hemoglobin A1C 5.8 % (<5.7)
[2022-09-23 13:20] LABS: LDL Cholesterol Direct 90 mg/dL
[2022-09-23 13:33] LABS: Vitamin D 25 Hydroxy 53.4 ng/mL
== END 2022-09-23 10:53 | disposition home or self-care (01) ==
LOC: ANHGOSHLAB 10:54
PROVIDERS: PCP Family Medicine; Visit Provider Family Medicine
DX: R73.03 Prediabetes (principal); I10 Essential (primary) hypertension; E55.9 Vitamin D deficiency, unspecified; F41.1 Generalized anxiety disorder; E53.8 Deficiency of other specified B group vitamins; E78.5 Hyperlipidemia, unspecified
CPT/HCPCS: 36415; 80053; 80061; 82306; 82607; 83036; 84443; 85025

== ENCOUNTER 2022-12-09 09:01 | Outpatient (CLI) | payer OTHER, SELFPAY ==
[2022-12-09 19:34] LABS: Alanine Aminotransferase 24 U/L (6-35); Albumin Level 4.3 g/dL (3.5-5.1); Alkaline Phosphatase 48 U/L (38-126); Anion Gap 3 mmol/L (8-16); Aspartate Amino Transferase 30 U/L (14-36); Bilirubin,Total 0.6 mg/dL (0.2-1.3); Blood Urea Nitrogen 15 mg/dL (7-17); Carbon Dioxide 29 mmol/L (22-30); Chloride 104 mmol/L (98-107); Estimated Glomerular Filt Rate > 60; Glucose 109 mg/dL (65-110); Sodium 136 mmol/L (137-145)
== END 2022-12-09 09:02 | disposition home or self-care (01) ==
LOC: ANHGOSHLAB 09:03
PROVIDERS: PCP Family Medicine; Visit Provider Family Medicine
DX: R74.01 Elevation of levels of liver transaminase levels (principal)
CPT/HCPCS: 36415; 80053